=== PATIENT | male | born 1985 | race Caucasian/White ===

== ENCOUNTER 2018-03-11 12:19 | Emergency (ER) | payer SELFPAY ==
--- NOTE | 2018-03-11 12:19 | DT_ITS ---
This patient was seen during an EMR downtime March 04, 2018 - March 11, 2018. This patient may have a combination of paper and electronic documentation or all paper documentation. All documentation is viewable within the e-chart portion of [employer] for each patient visit.
[2018-03-11 12:20] VITALS: BP 213/89; PULSE 111; RESP 16; TEMP 36.8; O2SAT 98; BMI 19.8
--- NOTE | 2018-03-11 12:58 | US_ITS ---
STUDY: SCROTUM ULTRASOUND REASON FOR EXAM: Male, 32 years old. Side pain and swelling TECHNIQUE: Ultrasound evaluation of the scrotum was performed with color Doppler and static castaneda-scale imaging. COMPARISON: None. FINDINGS: RIGHT TESTICLE INTRATESTICULAR: There is a normal size of the right testicle. The right testicle measures 4.4 x 2.7 x 2.1 cm. There is a homogenous echotexture. There is normal arterial and normal venous vascularity. There is no demonstrated right testicular mass or cyst. EXTRATESTICULAR: The epididymis is normal in size. The epididymis head measures 0.7 x 1.1 x 0.8 cm. There is normal vascularity of the epididymis. There is a well-defined cystic structure within the epididymis, without internal echoes, consistent with an epididymal cyst. There is no demonstrated hydrocele. There is no demonstrated varicocele. There is no demonstrated extratesticular mass or cyst. . LEFT TESTICLE INTRATESTICULAR: There is a normal size of the left testicle. The left testicle measures 4.1 x 2.5 x 2.4 cm. There is a homogenous echotexture. There is normal arterial and normal venous vascularity. There is no demonstrated left testicular mass or cyst. EXTRATESTICULAR: The epididymis is normal in size. The epididymis head measures 1.5 x 2.3 x 2.3 cm. There is increased (hyperemic) vascularity of the epididymis. There is a well-defined cystic structure within the epididymis, without internal echoes, consistent with an epididymal cyst. There are prominent vessels on the left side of the scrotum. Valsalva was not reported. There is a small moderate left-sided hydrocele. There is thickening of the scrotal skin on the left compared to the right US/Testicular with Arterial Flow IMPRESSION: Normal bilateral testicles. No visualized torsion. There is a hyperemic thickened appearance of the left epididymis suspicious for epididymitis. Left-sided hydrocele There are vascular structures in the left testicle which may in part represent varicocele. Valsalva maneuver was not reported as positive or negative. Doppler Valsalva is recommended to evaluate for varicocele. Recommend study or repeating the study with Valsalva when appropriate. Thickened left side scrotal scan suspicious for cellulitis. Electronically Signed: Belle Solares MD at 14:24 EDT Tel , Service support ,
--- NOTE | 2018-03-11 12:58 | ED.VISSUMM ---
- ER Visit Summary Date of Service: 03/11/18 Chief Complaint: Testicular pain and swelling History of Present Illness: The patient is a 32 M who presents for 1 day of testicular pain swelling, worse on the left. Patient states symptoms began yesterday, and he has had penile discharge, white, for approximately 1 week. He is also had 3 weeks of urinary frequency but no overt dysuria. He had unprotected sexual intercourse within the last few months. He is suspicious for STI. No fever, nausea, diarrhea, constipation. No rash. Patient is having pain radiating into the left lower abdomen. Physical Examination: Vital signs: afebrile, hemodynamically stable, no hypoxia on room air General: well nourished, well developed, in no distress Skin: warm, dry, no rash, no pallor HEENT: normocephalic and atraumatic; PERRL, EOMI, moist mucous membranes Cardiovascular: regular rate and rhythm without murmurs, no peripheral edema, 2+ pulses all distal extremities Respiratory: No increased work of breathing Abdominal: Abdomen is soft, nontender with normoactive bowel sounds, no guarding or rebound, no masses : External male genitalia without lesions, no penile discharge, right testicle is mobile and nontender, left hemiscrotum has mild erythema and induration with a tender mobile testicle with normal lie. No tender inguinal lymphadenopathy. No hernia appreciated. MSK: Moves all extremities, no deformities, normal strength Neuro: Awake and alert, oriented ?4. No facial droop, sensation and motor function intact and symmetric Test Results: Abnormal Lab Results 03/11/18 03/11/18 12:30 13:20 Urine Color Yellow Urine Clarity Sl. Cloudy Urine pH 6.5 Ur Specific [place] 1.020 Urine Protein 15 H Urine Glucose (UA) Normal Urine Ketones Negative Urine Occult Blood Negative Urine Nitrite Negative Urine Bilirubin Negative Urine Urobilinogen 4 H Ur Leukocyte Esterase 25 H Urine RBC 0 SEEN Urine WBC 0-5 SEEN Ur Squamous Epith Cells 0-5 SEEN Urine Bacteria 0 SEEN Urine Mucus 0 SEEN Chlam trachomat DNA PCR POSITIVE H N.gonorrhoeae DNA (PCR) Positive H Clinical Impression(s) from Imaging Studies Testicular Ultrasound 03/11/18 12:58 IMPRESSION: Normal bilateral testicles. No visualized torsion. There is a hyperemic thickened appearance of the left epididymis suspicious for epididymitis. Left-sided hydrocele There are vascular structures in the left testicle which may in part represent varicocele. Valsalva maneuver was not reported as positive or negative. Doppler Valsalva is recommended to evaluate for varicocele. Recommend study or repeating the study with Valsalva when appropriate. Thickened left side scrotal scan suspicious for cellulitis. Electronically Signed: Belle Solares MD at 14:24 EDT Tel , Service support , Emergency Department Course and Treatment: Patient has history of risky sexual behavior, thus STI as the source of his testicular swelling is on the differential. Torsion is also concerning. Ultrasound showed no torsion but did show left-sided scrotal cellulitis and epididymitis. Patient was empirically treated to cover gonorrhea and chlamydia. He received IM Rocephin and was placed on 10 days of doxycycline. GC and Chlamydia pending at the time of patient discharge. Patient was discharged home and instructed to avoid sexual intercourse until he and his partners were both successfully treated. Treatment Plan: [] Disposition: [] Impression: Left epididymitis with scrotal cellulitis This note was generated with [employer] dictation software. It may contain incorrect words, spelling, and punctuation that were not noted in review of the chart prior to signing ED Disposition - Plan for ED Patient: Disposition: Home or Assisted Living Chief Complaint: Male Pain/Injury Instructions: ED Epididymitis Prescriptions: Doxycycline Monohydrate 100 mg PO BID #20 cap Additional Instructions: Do not have sex with any partners until you both have completed treatment for STIs. Take the entire antibiotic prescription even if you feel better before it is complete. Rest, use ice as needed on your scrotum to help with pain, and use ibuprofen as needed. If you have any worsening of your condition or any new concerning symptoms, please return immediately to the emergency department for another evaluation.
--- NOTE | 2018-03-11 13:01 | ED.DCSUM_ITS ---
- ER Visit Summary Date of Service: 03/11/18 Chief Complaint: Testicular pain and swelling History of Present Illness: The patient is a 32 M who presents for 1 day of testicular pain swelling, worse on the left. Patient states symptoms began yesterday, and he has had penile discharge, white, for approximately 1 week. He is also had 3 weeks of urinary frequency but no overt dysuria. He had unprotected sexual intercourse within the last few months. He is suspicious for STI. No fever, nausea, diarrhea, constipation. No rash. Patient is having pain radiating into the left lower abdomen. Physical Examination: Vital signs: afebrile, hemodynamically stable, no hypoxia on room air General: well nourished, well developed, in no distress Skin: warm, dry, no rash, no pallor HEENT: normocephalic and atraumatic; PERRL, EOMI, moist mucous membranes Cardiovascular: regular rate and rhythm without murmurs, no peripheral edema, 2 + pulses all distal extremities Respiratory: No increased work of breathing Abdominal: Abdomen is soft, nontender with normoactive bowel sounds, no guarding or rebound, no masses : External male genitalia without lesions, no penile discharge, right testicle is mobile and nontender, left hemiscrotum has mild erythema and induration with a tender mobile testicle with normal lie. No tender inguinal lymphadenopathy. No hernia appreciated. MSK: Moves all extremities, no deformities, normal strength Neuro: Awake and alert, oriented ?4. No facial droop, sensation and motor function intact and symmetric Test Results: Abnormal Lab Results 03/11/18 03/11/18 12:30 13:20 Urine Color Yellow Urine Clarity Sl. Cloudy Urine pH 6.5 Ur Specific [place] 1.020 Urine Protein 15 H Urine Glucose (UA) Normal Urine Ketones Negative Urine Occult Blood Negative Urine Nitrite Negative Urine Bilirubin Negative Urine Urobilinogen 4 H Ur Leukocyte Esterase 25 H Urine RBC 0 SEEN Urine WBC 0-5 SEEN Ur Squamous Epith Cells 0-5 SEEN Urine Bacteria 0 SEEN Urine Mucus 0 SEEN Chlam trachomat DNA PCR POSITIVE H N.gonorrhoeae DNA (PCR) Positive H Clinical Impression(s) from Imaging Studies Testicular Ultrasound 03/11/18 12:58 IMPRESSION: Normal bilateral testicles. No visualized torsion. There is a hyperemic thickened appearance of the left epididymis suspicious for epididymitis. Left-sided hydrocele There are vascular structures in the left testicle which may in part represent varicocele. Valsalva maneuver was not reported as positive or negative. Doppler Valsalva is recommended to evaluate for varicocele. Recommend study or repeating the study with Valsalva when appropriate. Thickened left side scrotal scan suspicious for cellulitis. Electronically Signed: Belle Solares MD at 14:24 EDT Tel , Service support , Emergency Department Course and Treatment: Patient has history of risky sexual behavior, thus STI as the source of his testicular swelling is on the differential. Torsion is also concerning. Ultrasound showed no torsion but did show left-sided scrotal cellulitis and epididymitis. Patient was empirically treated to cover gonorrhea and chlamydia. He received IM Rocephin and was placed on 10 days of doxycycline. GC and Chlamydia pending at the time of patient discharge. Patient was discharged home and instructed to avoid sexual intercourse until he and his partners were both successfully treated. Treatment Plan: [] Disposition: [] Impression: Left epididymitis with scrotal cellulitis This note was generated with [employer] dictation software. It may contain incorrect words, spelling, and punctuation that were not noted in review of the chart prior to signing ED Disposition - Plan for ED Patient: Disposition: Home or Assisted Living Chief Complaint: Male Pain/Injury Instructions: ED Epididymitis Prescriptions: Doxycycline Monohydrate 100 mg PO BID #20 cap Additional Instructions: Do not have sex with any partners until you both have completed treatment for STIs. Take the entire antibiotic prescription even if you feel better before it is complete. Rest, use ice as needed on your scrotum to help with pain, and use ibuprofen as needed. If you have any worsening of your condition or any new concerning symptoms, please return immediately to the emergency department for another evaluation.
[2018-03-11] MEDS: Acetaminophen 500 MG Tablet 1000 MG PO (13:11)
[2018-03-11 13:25] LABS: Bacteria 0 SEEN /hpf (None Seen); Mucous, Urine 0 SEEN /hpf (<or=2+); Red Blood Cells-Urine 0 SEEN /hpf (0-5)
[2018-03-11 13:43] LABS: Color, Urine Yellow (Yellow); Glucose, Dipstick Normal (Normal); Ketone-Dipstick Negative (Negative); Leukocyte Esterase-Dipstick 25 /ul (Negative); Nitrite-Dipstick Negative (Negative); Occult Blood-Urine Negative /ul (Negative); Protein-Dipstick 15 mg/dl (Negative); Urine Bilirubin Dipstick Negative (Negative); Urine Clarity Sl. Cloudy (Clear); Urine Urobilinogen 4 mg/dl (Normal); Urine pH 6.5 (5.0 - 8.0)
[2018-03-11 13:54] LABS: Squamous Epithelial Cells - UA 0-5 SEEN /hpf (0-5); White Blood Cells 0-5 SEEN /hpf (0-5)
[2018-03-11 14:32] VITALS: BP 113/72; PULSE 83; RESP 16; O2SAT 98
--- NOTE | 2018-03-11 15:11 | ED.DEP ---
ED Disposition - Plan for ED Patient: Disposition: Home or Assisted Living Chief Complaint: Male Pain/Injury Instructions: ED Epididymitis Prescriptions: Doxycycline Monohydrate 100 mg PO BID #20 cap Additional Instructions: Do not have sex with any partners until you both have completed treatment for STIs. Take the entire antibiotic prescription even if you feel better before it is complete. Rest, use ice as needed on your scrotum to help with pain, and use ibuprofen as needed. If you have any worsening of your condition or any new concerning symptoms, please return immediately to the emergency department for another evaluation.
[2018-03-11 16:04] LABS: Chlamydia Trachomatis by PCR POSITIVE (Negative); Neisserai gonorrhoeae by PCR Positive (Negative); Probe Check PASS
[2018-03-11] MEDS: Ceftriaxone 500 MG Vial 250 MG IM (16:34)
== END 2018-03-11 16:36 | disposition home or self-care (01) ==
PROVIDERS: Emergency Provider Emergency Medicine; Family Provider Family Medicine; PCP Family Medicine
DX: N45.1 Epididymitis (principal); N49.2 Inflammatory disorders of scrotum
CPT/HCPCS: 76870; 81001; 87086; 87088; 87491; 87591; 93976; 96372; 99283

== ENCOUNTER 2022-03-22 18:35 | Emergency (ER) | payer MEDICAID, SELFPAY ==
[2022-03-22 18:35] VITALS: BP 135/90; PULSE 113; RESP 22; TEMP 36.9; O2SAT 95; BMI 22.4
--- NOTE | 2022-03-22 20:03 | EX.ED.GENINJ ---
HPI History of Present Illness Chief Complaint: Bite Informant: patient Narrative Narrative: 6-year-old male sustained a dog bite to the left wrist and hand. He was with his friend who owns the dog. The dog shots are up-to-date. He was sitting in a chair with the dog next to him. The dog growled. The dog then bit his forearm. Unknown last tetanus. PFSH PFSH Home Medications amoxicillin 875 mg-potassium clavulanate 125 mg tablet 875 mg PO Q12H #14 TABLETS 03/22/22 [Rx Last Taken Unknown] Allergy/AdvReac Type Severity Reaction Status Date / Time No Known Allergies Allergy Verified 03/22/22 18:35 Social History Smoking Status: Never smoker ROS ROS ED Constitutional Constitutional ED: Denies chills or weight loss Eyes Eyes: Denies change in vision or diplopia ENT ENT ED: Denies ear pain, rhinorrhea or sore throat Cardiovascular Cardiovascular: Denies chest pain, orthopnea, palpitations or racing heartbeat Respiratory/Chest Respiratory/Chest: Denies cough, dyspnea or orthopnea Gastrointestinal Gastrointestinal: Denies abdominal pain, diarrhea, nausea or vomiting Genitourinary Genitourinary ED: Denies dysuria, hematuria or urinary frequency Musculoskeletal Musculoskeletal: Reports other Details: See history of present illness ; Denies arthralgias or myalgias Integumentary Denies abscess or rash Neurologic Neurologic: Denies headache(s) or weakness Psychiatric Psychiatric: Denies anxiety, depression, suicidal ideation or suicidal thoughts Endocrine Endocrinology: Denies polydipsia, polyphagia or polyuria Allergic/Immunologic Allergic/Immunologic ED: Denies mouth swelling, tongue swelling or urticaria EXAM Physical Exam Narrative Exam Narrative: Well-appearing male sitting in the bed comfortably eating a whopper. Const Vital Signs: 03/22/22 18:35 Temperature 98.5 F Temperature Source Temporal Pulse Rate 113 H Respiratory Rate 22 H Blood Pressure 135/90 H Blood Pressure Mean 105 Pulse Ox 95 Oxygen Delivery Method Room Air Positive well nourished and well developed General Appearance ED: well developed HEENT Reports normocephalic, head/scalp atraumatic and moist mucous membranes Eyes PERRL and EOMs intact bilaterally Neck no lymphadenopathy, supple and no JVD Resp normal respiratory effort and clear to auscultation bilaterally Cardio regular rate, regular rhythm and no murmurs GI normal to inspection, nondistended, normoactive bowel sounds and non-tender Palpation: soft Back/Spine no CVA tenderness and normal ROM Extremity Extremity Narrative: There are multiple puncture wounds to the left forearm/wrist and 2 onto the medial proximal left hand. General Extremety ED: Negative for edema General Extremity: Negative for edema Neuro oriented x3 and CN's II-XII intact bilaterally Sensorium / Orientation: alert Motor Exam: strength 5/5 throughout Psych mental status grossly normal Mood & Affect: Negative for depressed or tearful Skin no rashes or lesions noted and no wounds MDM MDM MDM Narrative Medical decision making narrative: My interpretation of the plain film of the left wrist is no fracture or foreign body seen. Wounds were washed cleansed and dressed. Tetanus was updated. He will be started on Augmentin. Return if worsening or concerns Radiography Diagnostic Testing: Clinical Impression(s) from Imaging Studies Wrist X-Ray 03/22/22 20:20 IMPRESSION: There is non-specific soft tissue swelling of the dorsum of the hand. Electronically Signed: Manish Davis MD at 20:39 EDT Reading Location ID and State: [facility] / [place] , Service support , Discharge Plan Triage Chief Complaint: Bite ED Provider: Bear Shah Dx/Rx/DC Orders Clinical Impression: Dog bite of arm Instructions: ED Dog Bite Prescriptions: New amoxicillin-pot clavulanate [amoxicillin-pot clavulanate] 875-125 mg tablet 875 mg PO Q12H Qty: 14 0RF Primary Care Provider: Sophie Long Referrals: Sophie Long MD [Primary Care Provider] - As Needed Disposition Disposition: Home, Self Care
--- NOTE | 2022-03-22 20:20 | RAD_ITS ---
STUDY: XR Wrist Min 3 Views REASON FOR EXAM: Male, 36 years old. dog bite TECHNIQUE: XR Wrist Min 3 Views LEFT COMPARISON: None FINDINGS: There are no acute findings of the visualized distal radius and ulna. There are no acute findings of the radiocarpal articulation. Normal distal radioulnar articulation. Normal carpal bones. Normal carpal articulations. There are no acute findings of the carpometacarpal articulation of the thumb. Normal second through fifth carpometacarpal articulations. There are no acute findings of the visualized metacarpal bones. There is non-specific soft tissue swelling of the dorsum of the hand. RAD/Wrist min 3 Views IMPRESSION: There is non-specific soft tissue swelling of the dorsum of the hand. Electronically Signed: Manish Davis MD at 20:39 EDT ,
[2022-03-22] MEDS: Amox/Clavulanate 875 MG Tablet PO (20:30)
[2022-03-22] MEDS: Diphth,Pertuss(Acell),Tet Vac 0.5 ML Vial IM (20:31)
[2022-03-22 21:38] VITALS: PULSE 85; RESP 16; O2SAT 97
== END 2022-03-22 21:39 | disposition home or self-care (01) ==
PROVIDERS: Emergency Provider Emergency Medicine; PCP Family Medicine; Visit Provider Emergency Medicine
DX: S51.832A Puncture wound without foreign body of left forearm, initial encounter (principal); S61.532A Puncture wound without foreign body of left wrist, initial encounter; S61.432A Puncture wound without foreign body of left hand, initial encounter; W54.0XXA Bitten by dog, initial encounter; Y93.89 Activity, other specified; Y99.8 Other external cause status; Z23 Encounter for immunization
CPT/HCPCS: 73110; 90471; 90715; 99283

== ENCOUNTER 2022-05-10 09:02 | Emergency (ER) | payer MEDICAID, SELFPAY ==
[2022-05-10 09:04] VITALS: BP 124/81; PULSE 110; RESP 16; TEMP 36.7; O2SAT 100; BMI 19.6
--- NOTE | 2022-05-10 09:25 | EDS_ITS ---
HPI History of Present Illness Chief Complaint: Abscess Informant: patient Onset/Context/Timing Onset: Days Context: Gradual Onset Timing: Continuous Current Severity: Mild Maximum Severity: Mild Narrative Narrative: 36-year-old male no seen past medical history. About 4 days ago he developed what he thought was an ingrown hair abscess on the top of his left knee. His mom is a nurse here at the hospital it was draining she helped express some pus out of it and cleaned it up. 2 days ago he went to the urgent care and was started on Bactrim. Last night and today sats worse. More painful. More swollen. He denies any fever or chills. Prior similar symptoms: Yes Recent Illness/Hospitalization: No PFSH PFSH Medical History no medical history no medical history Home Medications cephalexin 500 mg capsule 500 mg PO Q6 10 days #40 caps 05/10/22 [Rx Last Taken Unknown] sulfamethoxazole 800 mg-trimethoprim 160 mg tablet 1 tab PO BID 05/10/22 [History Last Taken Unknown] Allergy/AdvReac Type Severity Reaction Status Date / Time No Known Allergies Allergy Verified 05/10/22 09:07 Social History Smoking Status: Never smoker ROS ROS ED ROS Narrative Denies recent illness. Review of Systems ROS Unobtainable: Denies due to encephalopathy Constitutional Constitutional ED: Denies chills Eyes Eyes: Denies blurry vision ENT ENT ED: Denies ear pain Cardiovascular Cardiovascular: Denies chest pain Respiratory/Chest Respiratory/Chest: Denies cough Gastrointestinal Gastrointestinal: Denies abdominal pain Genitourinary Genitourinary ED: Denies dysuria Musculoskeletal Musculoskeletal: Denies arthralgias Integumentary Reports abscess Neurologic Neurologic: Denies headache(s) Psychiatric Psychiatric: Denies anxiety Endocrine Endocrinology: Denies cold intolerance Hematologic/Lymphatic Hematologic/Lymphatic: Reports none Allergic/Immunologic Allergic/Immunologic ED: Denies mouth swelling EXAM Physical Exam Narrative Exam Narrative: 36-year-old male no acute distress. Vital signs are stable and afebrile. H EENT exam unremarkable. Lungs are clear. Heart regular rhythm. No murmur. Abdomen soft. Nontender. Patient moving all 4 extremities. Neurovascularly intact. Top of his left knee above the patella there is an area of a small abscess. Is not a lot of fluctuance. There is inflamed tissue that is red and tender. It does not involve the joint he has full flexion-extension of his left knee without discomfort. There is no effusion. There is no streaks and no inguinal lymphadenopathy. Both lower extremities are neurovascularly intact. Const Vital Signs: 05/10/22 09:04 Temperature 98.1 F Temperature Source Temporal Pulse Rate 110 H Respiratory Rate 16 Blood Pressure 124/81 H Blood Pressure Mean 95 Pulse Ox 100 Oxygen Delivery Method Room Air Positive well nourished and well developed; Negative for obese, cachectic, contractures or unkempt General Appearance ED: well developed and NAD; Negative for unkempt, cachectic, contractures, cyanotic or diaphoretic Nutritional Appearance: Negative for cachectic or obese HEENT Reports moist mucous membranes Negative for trauma Eyes PERRL and EOMs intact bilaterally General Eye ED: Negative for pale conjunctiva or scleral icterus Neck no lymphadenopathy, supple and no JVD General: Negative for tenderness Lymph Lymphatic: Negative for other Chest Wall inspection of chest normal and palpation of chest normal Resp normal respiratory effort and clear to auscultation bilaterally Effort and Inspection: Negative for retractions Auscultation: Negative for rales, rhonchi or wheezes Cardio regular rate, regular rhythm, S1 normal heart sound, S2 normal heart sound and no murmurs GI normal to inspection, nondistended, normoactive bowel sounds, non-tender, non- distended and no masses Inspection: Negative for abdominal distention Auscultation: normoactive bowel sounds Palpation: soft; Negative for tender Back/Spine no CVA tenderness Extremity normal to inspection Extremity Narrative: Except left knee below the kneecap there is an area of cellulitis and small abscess. No significant fluctuance. Full flexion-extension of the knee. No lymphangitic streaking. No inguinal lymphadenopathy. General Extremety ED: Yes tenderness Neuro oriented x3 and CN's II-XII intact bilaterally Sensorium / Orientation: alert; Negative for orientation impaired, lethargic or stuporous Motor Exam: strength 5/5 throughout Psych mental status grossly normal Appearance: Negative for unkempt Attitude: No agitated Mood & Affect: Negative for depressed or anxious Skin No no rashes or lesions noted and no wounds Skin Narrative: Cellulitis above the left knee. MDM MDM MDM Narrative Medical decision making narrative: Healthy 36-year-old male with cellulitis and small abscess prepatellar on the left knee. No involvement of the knee. Area be locally anesthetized and attempted I&D. There is limited fluctuance. Cleaned the left knee with Shur-Clens. Washed with saline. Local anesthetized with lidocaine and made 1 to 2 cm horizontal incision and there really was no significant pus expressed. I probed it with a forceps. And again there was in a pocket of pus. I explained to the patient he had primarily cellulitis and infected soft tissue. I will add Keflex to the Bactrim that he is already on. He knows return if worse. Tylenol Motrin for pain. He will be given a dose of Keflex here. Procedures Other Procedures Procedure(s): Left knee incision and drainage. Cleaned with Shur-Clens. Washed with saline. Local anesthetized lidocaine. 1 to 2 cm horizontal incision. No significant pus expressed. Probed. Cleaned and dressed. Discharge Plan Triage Chief Complaint: Abscess ED Provider: Chico Lopez Dx/Rx/DC Orders Clinical Impression: Cellulitis Instructions: ED Abscess Incision And Drainage, ED Cellulitis Prescriptions: New cephalexin 500 mg capsule 500 mg PO Q6 10 Days Qty: 40 0RF No Action sulfamethoxazole-trimethoprim 800-160 mg tablet 1 tab PO BID Label Comments: Take 1 tablet by mouth twice daily for 7 days. Primary Care Provider: Sophie Long Referrals: Sophie Long MD [Primary Care Provider] - 3-5 Days if not improving Activity Restrictions/Additional Instructions: Patient infected tissue no pocket of pus. Bactrim twice a day till finished. Keflex 4 times a day till finished. Patient started improving the next 24 to 72 hours. It may get a little worse before it starts getting better. You get significant swelling in the knee, worsening pain, streaks, fever or swollen lymph nodes in your groin return to be reevaluated. Motrin and Tylenol for pain. Disposition Disposition: Home, Self Care
[2022-05-10] MEDS: Lidocaine 1% (20 ml mdv) 20 ML Vial 10 ML INFILT (09:27)
[2022-05-10] MEDS: Cephalexin 250 MG Capsule 500 MG PO (09:58)
[2022-05-10 10:02] VITALS: BP 129/74; PULSE 68; RESP 15; O2SAT 98
== END 2022-05-10 10:03 | disposition home or self-care (01) ==
PROVIDERS: Emergency Provider Emergency Medicine; PCP Family Medicine; Visit Provider Emergency Medicine
DX: L02.416 Cutaneous abscess of left lower limb (principal)
CPT/HCPCS: 10060; 99284

== ENCOUNTER 2022-09-22 19:37 | Emergency (ER) | payer MEDICAID, SELFPAY ==
[2022-09-22 19:37] VITALS: BP 137/83; PULSE 77; RESP 16; TEMP 35.5; TEMP 35.6; BMI 20.4
[2022-09-22 20:07] VITALS: RESP 18
--- NOTE | 2022-09-22 20:07 | ED.VIS.DENTA ---
HPI History of Present Illness Chief Complaint: Dental Informant: patient Narrative Narrative: Patient is a 37-year-old male with history of broken tooth in the back left molar. He states he cracked it a couple months ago and had put some packing in it. The packing had fallen out and he thinks it might of gotten infected. He is at increased pain for the past few days. Heat seems to make it better. Describes the pain as an ache. He is unable to get into a dentist with a holiday so he came to the ER. He notes before he was put on antibiotics and that seemed to help. No other complaints at this time. Denies difficulty swallowing. Denies any fever or chills. No change in phonation. PFSH PFS Medical History Pain, dental Home Medications amoxicillin 875 mg-potassium clavulanate 125 mg tablet 1 tab PO BID #20 tabs 09/22/22 [Rx Last Taken Unknown] ibuprofen 600 mg tablet 600 mg PO Q6H PRN PRN fever or pain #20 tabs 09/22/22 [Rx Last Taken Unknown] Allergy/AdvReac Type Severity Reaction Status Date / Time No Known Allergies Allergy Verified 05/10/22 09:07 Social History Smoking Status: Never smoker ROS ROS ED Constitutional Constitutional ED: Denies chills or fever(s) Eyes Eyes: Denies change in vision ENT ENT ED: Reports other Details: Left upper dental pain Cardiovascular Cardiovascular: Denies chest pain or palpitations Respiratory/Chest Respiratory/Chest: Denies cough or dyspnea Gastrointestinal Gastrointestinal: Denies nausea or vomiting Musculoskeletal Musculoskeletal: Denies arthralgias or myalgias Integumentary Denies rash Neurologic Neurologic: Denies headache(s) EXAM Physical Exam Const Vital Signs: 09/22/22 19:37 09/22/22 19:37 Temperature 96 F L 96.0 F L Temperature Source Temporal Temporal Pulse Rate 77 77 Respiratory Rate 16 16 Blood Pressure 137/83 H 137/83 H Blood Pressure Mean 101 101 Positive well nourished and well developed General Appearance ED: well developed and NAD HEENT Reports TM's clear HEENT Narrative: Normal tympanic membrane's bilaterally. Normal oropharynx. Patient has obvious caries in the left third molar. No obvious abscess appreciated. No significant increased pain with direct palpation. Patient does have some mild erythema over his left cheek but was holding a heat pack to it when I went to the room. Sublingual mucosa is soft. Normal phonation. Negative for trauma Tympanic Membrane ED: Yes TM's clear Neck supple Neck Narrative: No meningeal signs Chest Wall inspection of chest normal Cardio regular rate, regular rhythm and no murmurs GI non-distended Extremity normal to inspection Neuro oriented x3, moves all extremities and no focal motor deficits Sensorium / Orientation: alert Psych mental status grossly normal Discharge Plan Triage Chief Complaint: Dental ED Provider: Angie Rehman Dx/Rx/DC Orders Clinical Impression: Dentalgia, Dental caries Instructions: ED Dental Pain Prescriptions: New amoxicillin-pot clavulanate 875-125 mg tablet 1 tab PO BID Qty: 20 0RF ibuprofen 600 mg tablet 600 mg PO Q6H PRN PRN (Reason: fever or pain) Qty: 20 0RF Primary Care Provider: Sophie Long Referrals: Sophie Long MD [Primary Care Provider] - Sandie Sepulveda [Non-Staff] - Disposition Disposition: Home, Self Care
[2022-09-22] MEDS: Amox/Clavulanate 875 MG Tablet PO (20:11)
[2022-09-22] MEDS: Ibuprofen 600 MG Tablet PO (20:11)
== END 2022-09-22 20:18 | disposition home or self-care (01) ==
PROVIDERS: Emergency Provider Emergency Medicine; PCP Family Medicine; Visit Provider Emergency Medicine
DX: K02.9 Dental caries, unspecified (principal); K08.89 Other specified disorders of teeth and supporting structures
CPT/HCPCS: 99283

== ENCOUNTER 2025-07-15 17:08 | Emergency (ER) | payer MEDICAID, SELFPAY ==
[2025-07-15 17:09] VITALS: BP 146/94; PULSE 92; RESP 18; TEMP 36.4; O2SAT 100; BMI 23.8
--- NOTE | 2025-07-15 17:56 | ED.VIS.DENTA ---
HPI History of Present Illness Chief Complaint: Dental Informant: patient Onset/Context/Timing Onset: Yesterday Context: Gradual Onset Timing: Continuous Quality: Throbbing Location: Left upper second molar Worsened by: Nothing Relieved by: - (Nothing) Associated Symptoms Assocated Symptom - Dental: jaw swelling; Negative for fever, face swelling, cold sensitivity or hot sensitivity Narrative Narrative: Patient presents with left upper dental pain that began yesterday. Patient states it is gradually getting worse. Patient describes it as throbbing. Patient states it is over the left upper molars. Patient states nothing makes it worse and nothing makes it better. Patient admits to some swelling around his jaw. Patient denies any hot or cold sensitivity. Patient denies any fevers or chills. Patient denies any difficulty breathing or difficulty swallowing. PFSH [facility] Medical History Pain, dental Home Medications ?Medication ?Instructions ?Recorded ?Last Taken ?Type hydrocodone-acetaminophen 5-325mg 1 tab PO Q6H PRN PRN Pain 3 days 07/15/25 Unknown Rx 5mg-325mg #10 TABLETS penicillin V potassium 500 mg 500 mg PO 4X/DAY #40 tabs 07/15/25 Unknown Rx tablet Allergy/AdvReac Type Severity Reaction Status Date / Time No Known Allergies Allergy Verified 07/15/25 17:09 Social History Smoking Status: Never smoker ROS ROS ED Constitutional Constitutional ED: Denies chills or fever(s) Eyes Eyes: Denies blurry vision or change in vision ENT ENT ED: Denies rhinorrhea or sore throat Cardiovascular Cardiovascular: Denies chest pain or palpitations Respiratory/Chest Respiratory/Chest: Denies cough or dyspnea Gastrointestinal Gastrointestinal: Denies nausea or vomiting Genitourinary Genitourinary ED: Denies dysuria or hematuria Musculoskeletal Musculoskeletal: Denies back pain or neck pain Integumentary Denies abscess or rash Neurologic Neurologic: Reports headache(s); Denies weakness Allergic/Immunologic Allergic/Immunologic ED: Denies mouth swelling or urticaria EXAM Physical Exam Const Vital Signs: 07/15/25 17:09 Temperature 97.6 F L Temperature Source Temporal Pulse Rate 92 Respiratory Rate 18 Blood Pressure 146/94 H Blood Pressure Mean 111 Pulse Ox 100 Oxygen Delivery Method Room Air Positive well nourished and well developed General Appearance ED: well developed and NAD HEENT HEENT Narrative: There is a large dental carry noted over the left upper second molar. There is gingival edema around this tooth. There is no discharge or drainage. There is no fluctuance. Oropharynx is clear. Airway is patent. Neck is supple. Trachea is midline. There is no JVD. There is no sublingual edema or erythema. There is no evidence of Robert's angina. Mouth ED: Yes oral and palatal mucosa abnormal Mouth: oral and palatal mucosa abnormal Teeth and Gingiva: caries and gingiva abnormal Positive for gingival edema Throat: posterior oropharynx normal Neck supple and no JVD General: Negative for anterior neck swelling, tenderness or submandibular swelling Neuro oriented x3, CN's II-XII intact bilaterally, moves all extremities, no focal motor deficits and no sensory deficits noted Sensorium / Orientation: alert Motor Exam: strength 5/5 throughout Psych mental status grossly normal MDM MDM MDM Narrative Medical decision making narrative: Patient was advised that his pain is mainly from dental infection. Patient was given a dose of Pen-Vee K here. Patient was given a prescription for Pen-Vee K. Patient was also given a prescription for a short course of Hollister. Patient was given a dental referral list. Patient was instructed to follow-up with the dentist in 5 to 7 days. Patient was instructed to return if worse in any way. Patient understood and was agreeable with the plan. All questions were answered. Discharge Plan Triage Chief Complaint: Dental ED Provider: Ramin Hughes Dx/Rx/DC Orders Clinical Impression: Infected dental caries, Elevated blood pressure reading Instructions: ED Dental Pain, ED Dental Cavity Prescriptions: New hydrocodone-acetaminophen 5-325 mg tablet 1 tab PO Q6H PRN PRN (Reason: Pain) 3 Days Qty: 10 0RF penicillin V potassium 500 mg tablet 500 mg PO 4X/DAY Qty: 40 0RF Primary Care Provider: Sophie Long Referrals: Sophie Long MD [Primary Care Provider, Family Practice] - 5-7 Days [facility] [STAFF PHYSICIAN, Dentistry] - 3-5 Days Print Language: Maltese Disposition Disposition: Home, Self Care
[2025-07-15 18:13] VITALS: BP 139/100; PULSE 92; RESP 18; TEMP 36.4; O2SAT 100
== END 2025-07-15 18:14 | disposition home or self-care (01) ==
PROVIDERS: Emergency Provider Emergency Medicine; PCP Family Medicine; Visit Provider Emergency Medicine
DX: K04.7 Periapical abscess without sinus (principal); K02.9 Dental caries, unspecified; R03.0 Elevated blood-pressure reading, without diagnosis of hypertension
CPT/HCPCS: 99282